=== PATIENT | male | born 1990 | race Caucasian/White ===

== ENCOUNTER → 2016-10-05 15:04 | Emergency (ER) | payer OTHER ==
[~2016-10-05 15:04] MED LIST: DICLOFENAC PO; ROBAXIN500 MG PO; UNK BP MED
== END | disposition home or self-care (01) ==
LOC: CFTX 15:04
DX: S11.91XA Laceration without foreign body of unspecified part of neck, initial encounter (principal); I10 Essential (primary) hypertension; F17.210 Nicotine dependence, cigarettes, uncomplicated; Z23 Encounter for immunization; Z88.5 Allergy status to narcotic agent; W45.8XXA Other foreign body or object entering through skin, initial encounter
CPT/HCPCS: 12041; 90471; 90715; 99283

== ENCOUNTER 2016-10-30 09:15 | Emergency (ER) | payer OTHER | END 2016-10-30 09:37 | disposition home or self-care (01) | LOC: CFTX 09:15 | DX: L02.11 Cutaneous abscess of neck (principal); F17.210 Nicotine dependence, cigarettes, uncomplicated; Z88.5 Allergy status to narcotic agent | CPT/HCPCS: 10060; 99283 ==